=== PATIENT | female | born 2000 | race Caucasian/White ===

== ENCOUNTER 2020-03-02 21:31 | Emergency (ER) | payer BC, OTHER, MEDICAID, SELFPAY ==
--- NOTE | 2020-03-02 21:34 | ED.EXTPRO ---
HPI - Extremity Problem General Chief complaint: Skin/Abscess/Foreign Body Stated complaint: finger right hand, swollen and red from wound Time Seen by Provider: 03/02/20 21:33 Source: patient Mode of arrival: Ambulatory Limitations: no limitations History of Present Illness HPI Narrative: 19-year-old female nonsmoker with noncontributory medical history presents with multiple complaints. Her primary concern is of redness, pain and swelling on her right index finger. On Tuesday she was preparing cooked crab and using a handheld cracker which pinched her finger. She now has pain with range of motion and redness on the flexor surface. Additionally, she has a sore throat with difficulty swallowing and a temporal fever of 101.3 at home. She denies runny nose, sneezing or cough. She has no chest pain or shortness of breath. 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 Finally she has had burning with urination, frequency and urgency reports frequent urine infections. MD Complaint: extremity pain and extremity swelling Onset (ago): day(s) Pain Consistency: constant Location: right Quality: aching Radiation: none Relieving factors: rest Exacerbating factors: range of motion Related Data Previous Rx's Medication Instructions Recorded cephalexin [Keflex] 500 mg PO QID 10 Days #40 cap 03/02/20 fluconazole 150 mg PO Q3D #2 tab 03/02/20 Allergies Allergy/AdvReac Type Severity Reaction Status Date / Time amoxicillin [AMOXICILLIN] Allergy Intermediate rash Verified 03/02/20 21:53 azithromycin [AZITHROMYCIN] AdvReac Mild stomach Verified 03/02/20 21:53 cramps Review of Systems Constitutional Constitutional: Reports body ache(s), Denies chills, Denies fatigue, Reports fever(s), Denies frequent falls, Denies lethargy and Denies weakness Eyes Eyes: Denies change in vision, Denies eye discharge, Denies irritation and Denies loss of vision ENT Ears, Nose, Mouth, and Throat: Denies change in voice, Denies dizziness, Denies neck pain, Reports sore throat and Denies throat swelling Cardiovascular Cardiovascular: Denies chest pain, Denies irregular heart rhythm, Denies lightheadedness, Denies palpitations, Denies dyspnea, Denies dyspnea on exertion and Denies orthopnea Respiratory Respiratory: Denies cough, Denies dyspnea, Denies dyspnea on exertion and Denies wheezing Gastrointestinal Gastrointestinal: Denies abdominal pain, Denies change in bowel habits, Denies diarrhea, Denies nausea and Denies vomiting Genitourinary Genitourinary: Reports dysuria Genitourinary: Reports difficulty voiding and Reports dysuria Musculoskeletal Musculoskeletal: Denies neck pain and Denies numbness Integumentary/Breasts Skin/Breast: Denies pruritus, Reports erythema, Denies rash, Reports skin pain, Reports skin swelling and Denies wounds Neurologic Neurologic: Denies behavioral changes, Denies confusion, Denies dizziness, Denies frequent falls, Denies loss of vision, Denies numbness and Denies weakness Psychiatric Psychiatric: Denies anxiety, Denies behavioral changes, Denies confusion, Denies depression, Denies homicidal ideation and Denies suicidal ideation Endocrine Endocrine: Denies fatigue, Denies flushing and Denies palpitations Hematologic/Lymphatic Hematologic/Lymphatic: Denies easy bruising Allergic/Immunologic Allergic/Immunologic: Denies urticaria, Denies throat swelling and Denies wheezing Patient History Social History Smoking Status: Never smoker Smoking Status: Never smoker alcohol intake frequency: 0-2 drinks per day Substance Use Type: does not use Exam Narrative Exam Narrative: GENERAL: [19] year old patient appears stated age. Well-nourished, well-developed patient, in mild distress. Anxious HEAD: Atraumatic. Normocephalic. EYES: Pupils equal round and reactive. Extraocular motions intact. No scleral icterus. No injection or drainage. ENT: Nose without bleeding, purulent drainage. Notable tonsillar swelling with erythema, no obvious exudate or suggestion of abscess. Tender anterior lymphadenopathy NECK: Trachea midline. Non tender in posterior mid thigh CARDIOVASCULAR: Regular rate and rhythm without murmurs, gallops, or rubs. RESPIRATORY: Clear to auscultation. Breath sounds equal bilaterally. No wheezes, rales, or rhonchi. GASTROINTESTINAL: Abdomen soft, non-tender, nondistended. EXTREMITIES: Minimal redness with tenderness to palpation on the volar aspect of her right index finger. It is only on this flexor surface, not circumferential and does not involve the whole finger. She has full but painful flexion extension of the finger. There is no uniform swelling or other sign consistent with flexor tenosynovitis. There is a very small pustule in the center of the erythema and patient states that she was able to drain a small amount of pus at home. There is no fluctuance or induration. BACK: Nontender without deformity or crepitance. No flank tenderness. NEURO: AOx3. SKIN: No rash or erythema of visible areas Initial Vital Signs Initial Vital Signs: Vital Signs Temperature 98.9 F 03/02/20 21:37 Pulse Rate 114 H 03/02/20 21:37 Respiratory Rate 20 03/02/20 21:37 Blood Pressure 131/76 03/02/20 21:37 Pulse Oximetry 100 03/02/20 21:37 Procedures Abscess I/D I&D #1: Site: hand Side (if applicable): left Technique: incised with #11 blade Amount of fluid expressed (mL): 0.1 Irrigation: No Packing used?: none Complications: pain Course Orders Ordered: ED Orders 03/02/20 21:46 COVID19 Stat 03/02/20 22:10 Urine Culture Stat Urine Microscopic Stat Discontinued Medications Cefazolin Sodium (Cephalexin 250 Mg Prepack) 1 bottle MISC SEEINSTR ONE Stop: 03/02/20 22:32 Last Admin: 03/02/20 22:45 Dose: 500 mg Documented by: JER Diphtheria/Tetanus/Acell Pertussis (Tet,Diph,Pertuss(Acell),Vac/Pf 0.5 Ml Syringe) 0.5 ml IM .ONCE ONE Stop: 03/02/20 21:40 Last Admin: 03/02/20 21:53 Dose: 0.5 ml Documented by: BEA Vital Signs Vital signs: Vital Signs - 8 hr 03/02/20 21:37 03/02/20 22:42 Temperature 98.9 F 99.0 F Pulse Rate 114 H 95 H Respiratory Rate 20 18 Blood Pressure 131/76 134/70 Pulse Oximetry 100 100 MDM - Extremity (Nontraumatic) Lab Data Labs: Lab Results 03/02/20 03/02/20 Range/Units 21:46 22:10 Urine RBC 0-1/hpf (0-5/HPF) Urine WBC 10-30/hpf H (0-5/HPF) Ur Squamous Epith Cells 0-1 /hpf (0-5/HPF) Urine Bacteria Few (2-10) H (None) Ur Culture Indicated? Specimen cultured COVID-19 PCR Negative (Negative) Point of Care Testing Rapid Strep A Positive Urine Dip Bedside Urine Glucose Negative Bedside Urine Bilirubin - Negative Bedside Urine Ketone - Negative Urine Specific [place] 1.020 Bedside Urine Occult Blood ++ Bedside Urine pH 6 Bedside Urine Protein - Negative Bedside Urine Urobilinogen - Negative Bedside Urine Nitrite - Negative Bedside Urine Leukocytes + 70 Esterase Discharge Plan Departure Patient Disposition: Home Clinical Impression: Strep pharyngitis Cellulitis Qualifiers: Site of cellulitis: extremity Site of cellulitis of extremity: finger Laterality: right Qualified Code(s): L03.011 - Cellulitis of right finger UTI (urinary tract infection) Qualifiers: Urinary tract infection type: acute cystitis Hematuria presence: with hematuria Qualified Code(s): N30.01 - Acute cystitis with hematuria Instructions: DI for Cellulitis -- Adult, Cellulitis, DI for Strep Throat Activity Restrictions/Additional Instructions: *You have been diagnosed with [cellulitis of your finger, strep throat, and UTI] *What to do: *Take medications as directed: Prescription for Keflex sent to [facility] *Follow up with your primary care provider in 2-3 days, call for an appointment. Let them know you were seen in the Emergency Department and that we ask that you be seen in follow up *Return to ER if you should have any new, worsening or concerning symptoms Prescriptions: New cephalexin [Keflex] 500 mg capsule 500 mg PO QID 10 Days Qty: 40 RF: 0 fluconazole 150 mg tablet 150 mg PO Q3D Qty: 2 RF: 0
[2020-03-02 21:37] VITALS: BP 131/76; PULSE 114; RESP 20; TEMP 37.2; O2SAT 100
[2020-03-02] MEDS: TET,DIPH,PERTUSS(ACELL),VAC/PF 0.5 ML SYRINGE IM (21:53)
[2020-03-02 22:11] LABS: COVID19 -Nasal RAPID Negative (Negative)
[2020-03-02 22:20] LABS: Bacteria Urine Few (2-10); Culture Indicated Urine Specimen Cultured; RBC Urine 0-1/HPF (0-5/HPF); Squamous Epithelial Cell Urine 0-1 /HPF (0-5/HPF); WBC Urine 10-30/HPF (0-5/HPF)
[2020-03-02 22:42] VITALS: BP 134/70; PULSE 95; RESP 18; TEMP 37.2; O2SAT 100
[2020-03-02] MEDS: cephALEXin 250 MG PREPACK 1 BOTTLE MISC (22:45)
== END 2020-03-02 22:55 | disposition home or self-care (01) ==
PROVIDERS: Emergency Provider Emergency Medicine
DX: J02.0 Streptococcal pharyngitis (principal); L03.011 Cellulitis of right finger; N30.01 Acute cystitis with hematuria; R50.9 Fever, unspecified; R30.0 Dysuria
CPT/HCPCS: 10060; 81003; 81015; 87077; 87086; 87186; 87635; 87880; 90471; 99281; 99283; STOP; 90715